=== PATIENT | male | born 1945 | race Caucasian/White ===

== ENCOUNTER → 2018-05-31 13:21 | Outpatient (CLI) | payer MEDICARE, BC, SELFPAY | DX: Z23 Encounter for immunization (principal) | CPT/HCPCS: 90471; 90662 ==

== ENCOUNTER → 2018-07-15 14:14 | Outpatient (REF) | payer MEDICARE, BC, SELFPAY | LOC: LAB 14:14 | PROVIDERS: Visit Provider Dermatology MOHS-Micrographic Surgery | DX: Z48.817 Encounter for surgical aftercare following surgery on the skin and subcutaneous tissue (principal); D04.61 Carcinoma in situ of skin of right upper limb, including shoulder | CPT/HCPCS: 87070; 87075; 87077; 87147; 87186; 87205 ==

== ENCOUNTER → 2021-03-11 06:54 | Outpatient (CLI) | payer MEDICARE, BC, SELFPAY ==
[2021-03-11 08:18] LABS: Hemoglobin A1C% w Est Avg Glu 7.2 % (4.0-6.0)
[2021-03-11 08:47] LABS: Alanine Aminotransferase 13 IU/L (<50); Albumin 3.6 g/dL (3.5-5.0); Albumin Globulin Ratio 1.3 (1.0-2.8); Alkaline Phosphatase 61 U/L (38-126); Aspartate Aminotransferase 18 IU/L (17-59); BUN Creatinine Ratio 21.6 (6-22); Bilirubin Total 0.8 mg/dL (0.2-1.3); Blood Urea Nitrogen 27 mg/dL (9-20); Calcium 9.5 mg/dL (8.4-10.2); Carbon Dioxide 27 mmol/L (22-32); Chloride 107 mmol/L (98-107); Cholesterol 129 mg/dL (140-199); Estimated Glomerular Filt Rate 56.2 mL/min (>60); Globulin 2.7 g/dL (1.7-4.1); Glucose 140 mg/dL (80-110); HDL Cholesterol 48 mg/dL (40-60); HEMOLYSIS < 15 (0-50); LDL Cholesterol Calculated 45 mg/dL (<100); Potassium 4.7 mmol/L (3.4-5.1); Sodium 140 mmol/L (137-145); Total Protein 6.3 g/dL (6.3-8.2); Triglycerides 179 mg/dL (35-150)
[2021-03-11 09:18] LABS: Prostate Specific Antigen 3.87 ng/mL (0.10-4.00)
== END ==
PROVIDERS: PCP Internal Medicine; Referring Provider Internal Medicine; Visit Provider Internal Medicine
DX: I25.5 Ischemic cardiomyopathy (principal); E11.9 Type 2 diabetes mellitus without complications; Z12.5 Encounter for screening for malignant neoplasm of prostate
CPT/HCPCS: 36415; 80053; 80061; 83036; 84153

== ENCOUNTER → 2021-03-26 09:30 | Outpatient (CLI) | payer MEDICARE, BC, SELFPAY ==
[2021-03-26 12:05] LABS: BUN Creatinine Ratio 20.1 (6-22); Blood Urea Nitrogen 27 mg/dL (9-20); Calcium 9.1 mg/dL (8.4-10.2); Carbon Dioxide 25 mmol/L (22-32); Chloride 107 mmol/L (98-107); Estimated Glomerular Filt Rate 51.8 mL/min (>60); Glucose 138 mg/dL (80-110); HEMOLYSIS < 15 (0-50); Potassium 4.3 mmol/L (3.4-5.1); Sodium 141 mmol/L (137-145)
== END ==
PROVIDERS: PCP Internal Medicine; Referring Provider Internal Medicine; Visit Provider Internal Medicine
DX: I25.5 Ischemic cardiomyopathy (principal)
CPT/HCPCS: 36415; 80048

== ENCOUNTER → 2022-09-21 11:23 | Outpatient (CLI) | payer MEDICARE, BC, SELFPAY ==
--- NOTE | 2022-09-21 11:26 | DI.RAD.S_ITS ---
PROCEDURE: XR SACROILIAC JOINT MIN 3V INDICATIONS: Low back pain TECHNIQUE: 3 views of the sacroiliac joints were acquired. COMPARISON: None. FINDINGS: Bones: No bony erosions or ankylosis. No suspicious bony lesions. No fractures. Mild sclerosis about the sacroiliac joints. Soft tissues: Overlying bowel gas pattern is normal. No suspicious soft tissue densities. IMPRESSION: Mild sclerosis about the sacroiliac joints, presumably degenerative in this age group. Dictated by: Dilan Uriarte M.D. on 09/21/2022 at 15:54 Approved by: Dilan Uriarte M.D. on 09/21/2022 at 15:56
--- NOTE | 2022-09-21 11:26 | DI.RAD.S_ITS ---
PROCEDURE: XR LUMBAR SPINE 2-3V INDICATIONS: Low back pain TECHNIQUE: 3 views of the lumbar spine were acquired. COMPARISON: None. FINDINGS: Bones: 5 [id number] vertebrae are present. Grade 1 anterolisthesis of L3 on L4. No vertebral body compression fractures. No suspicious bony lesions. Moderate, multilevel degenerative disc disease and facet arthrosis of L2 through S1. Soft tissues: Overlying bowel gas pattern is normal. A few ill-defined calcifications project over the expected position of the right kidney. IMPRESSION: 1. Moderate, multilevel degenerative disc disease and facet arthrosis. 2. A few ill-defined calcifications project over the expected position of the right kidney, suggestive of nonobstructive nephrolithiasis. Dictated by: Dilan Uriarte M.D. on 09/21/2022 at 15:48 Approved by: Dilan Uriarte M.D. on 09/21/2022 at 15:54
== END ==
PROVIDERS: PCP Internal Medicine; Referring Provider Internal Medicine; Visit Provider Internal Medicine
DX: M51.36 Other intervertebral disc degeneration, lumbar region (principal); M51.37 Other intervertebral disc degeneration, lumbosacral region; M47.816 Spondylosis without myelopathy or radiculopathy, lumbar region; M47.817 Spondylosis without myelopathy or radiculopathy, lumbosacral region; M54.50 Low back pain, unspecified
CPT/HCPCS: 72100; 72202

== ENCOUNTER → 2023-05-20 14:19 | Outpatient (CLI) | payer MEDICARE, BC, SELFPAY | PROVIDERS: PCP Internal Medicine; Referring Provider Family Medicine; Visit Provider Family Medicine | DX: Z23 Encounter for immunization (principal) | CPT/HCPCS: 90471; 90662 ==